=== PATIENT | male | born 1960 | race Caucasian/White ===

== ENCOUNTER 2016-08-27 12:07 | Emergency (ER) | payer OTHER ==
[~2016-08-27] VITALS: Wt 100.7 kg
[~2016-08-27 12:07] MED LIST: "\\\"BP PILL\\\""; AMOXICILLIN500 MG PO; AORACILLIN B500 MG PO; ASPIR LOW81 MG PO; CATAPRES0.1 MG PO; CLARITIN10 MG PO; DAYPRO600 M1 PO; FLEXERIL10 MG PO; LABETALOL HCL100 MG PO; LIPITOR40 MG PO; LISINOPRIL20 MG PO; MEDROL DOSEPAK4 MG PO; METOPROLOL50 MG; MINOXIDIL2.5 MG PO; MOTRIN800 MG PO; NAPROSYN500 MG PO; NKHM; NO DAILY MEDS; NORCO 325 MG-51 TAB PO; NORVASC10 MG PO; PARAFON FORTE500 MG PO; PEN-VEE K500 MG PO; ROBAXIN750 MG PO; TENORETIC; TENORETIC 50 501 TAB PO; TRAMADOL HCL50 MG PO; ULTRAM50 MG PO; VICODIN 5/500 505 MG; VICODIN 5/500 505 MG PO; ZESTRIL20 MG PO; ZITHROMAX Z PA250 MG PO
[2016-08-27] MEDS ORDERED: NEURONTIN300 MG PO (12:17)
[2016-08-27] MEDS ORDERED: TRAMADOL HCL50 MG PO (12:18)
[2016-08-27 13:01] LABS: BASO # 0.1 10*3/uL (0.0-0.1); BASO % 0.6 % (0.0-1.0); EOS # 0.6 10*3/uL (0.0-0.4); EOS % 7.2 % (1.0-4.0); HEMATOCRIT 35.4 % (42.0-52.0); HEMOGLOBIN 11.5 g/dl (14.0-18.0); LYMPH # 1.9 10*3/uL (1.3-4.4); LYMPH % 22.7 % (27.0-41.0); MEAN CELL VOLUME 89.8 fl (80.0-94.0); MEAN CORPUSCULAR HGB 29.2 pg (27.0-31.0); MEAN CORPUSCULAR HGB CONC 32.5 g/dl (33.0-37.0); MEAN PLATELET VOLUME 8.9 fl (9.6-12.3); MONO # 0.7 10*3/uL (0.1-1.0); MONO % 7.9 % (3.0-9.0); NEUT # 5.2 10*3/uL (2.3-7.9); NEUT % 61.2 % (47.0-73.0); PLATELET COUNT AUTOMATED 249 10*3/uL (130-400); RED BLOOD COUNT 3.94 10*6/uL (4.50-5.90); RED CELL DISTRI WIDTH 13.9 % (0-14.5); WHITE BLOOD COUNT 8.6 10*3/uL (4.8-10.8)
[2016-08-27 13:10] LABS: PROTHROMBIN TIME 10.5 SECONDS (9.0-12.4)
[2016-08-27 13:17] LABS: ALBUMIN 3.5 gm/dl (3.1-4.5); ALKALINE PHOSPHATASE 85 U/L (45-117); BILIRUBIN, TOTAL 0.5 mg/dl (0.2-1.0); BUN 10 mg/dl (7-24); CARBON DIOXIDE 30 mmol/L (21-32); CHLORIDE 104 mmol/L (98-107); EST GLOM FILT AFRICAN AMERICAN > 60 ml/min; GLUCOSE 162 mg/dL (65-99); POTASSIUM 3.7 mmol/L (3.5-5.1); SGOT/AST 30 IU/L (3-35); SGPT/ALT 37 U/L (12-78); SODIUM 141 mmol/L (136-145); TOTAL PROTEIN 7.3 gm/dL (6.4-8.2)
[2016-08-27 13:20] LABS: CPK 108 U/L (39-308); MAGNESIUM 2.1 mg/dL (1.5-2.1); TROPONIN I < 0.015 ng/ml (<0.045)
[2016-08-27] MEDS ORDERED: CEPHALEXIN500 M1 PO (14:07)
== END 2016-08-27 16:11 | disposition left against medical advice (07) ==
LOC: ED 12:07
PROVIDERS: Registered Nurse
DX: L03.119 Cellulitis of unspecified part of limb (principal); E66.9 Obesity, unspecified; R06.02 Shortness of breath; F17.200 Nicotine dependence, unspecified, uncomplicated; Z95.5 Presence of coronary angioplasty implant and graft; Z79.82 Long term (current) use of aspirin; Z79.899 Other long term (current) drug therapy

== ENCOUNTER → 2016-09-12 | Outpatient (CLI) | payer OTHER ==
[~2016-09-12] MED LIST changes: +CEPHALEXIN500 M1 PO; +NEURONTIN300 MG PO
== END | disposition home or self-care (01) ==
LOC: US 08-31 09:30
DX: B19.20 Unspecified viral hepatitis C without hepatic coma (principal); K76.0 Fatty (change of) liver, not elsewhere classified

== ENCOUNTER → 2016-09-23 | Outpatient (CLI) | payer OTHER ==
[2016-09-23 11:25] LABS: ALBUMIN 3.6 gm/dl (3.1-4.5); BILIRUBIN, DIRECT 0.1 mg/dL (0.0-0.2); BILIRUBIN, TOTAL 0.6 mg/dl (0.2-1.0); TOTAL PROTEIN 7.9 gm/dL (6.4-8.2)
[2016-09-24 22:05] LABS: HEPATITIS C QUANTITATION 15200 IU/mL (.)
== END | disposition home or self-care (01) ==
LOC: LAB 10:26
PROVIDERS: Internal Medicine Gastroenterology
DX: B19.20 Unspecified viral hepatitis C without hepatic coma (principal)

== ENCOUNTER 2016-09-29 18:48 | Emergency (ER) | payer OTHER ==
[~2016-09-29] VITALS: Ht 172.7 cm; Wt 123.4 kg
--- NOTE | ~2016-09-29 | EKG ---
[place], [place] ELECTROCARDIOGRAM REPORT NAME: CRISTIANE GOODWIN UNIT #: [id number] ROOM: DOCTOR: CONTRERAS ROBERTSON MD BIRTHDATE: [birth year] DOS: 09/29/2016 TIME: 1930 hours. Normal sinus rhythm at 65 beats per minute. The tracing is within normal limits. No previous tracing is available for comparison. CONTRERAS ROBERTSON MD CM:EKGRPT:ELECTROCARDIOGRAM REPORT 1805 [id number] CONTRERAS ROBERTSON MD
[2016-09-29 19:17] LABS: BASO # 0.1 10*3/uL (0.0-0.1); BASO % 0.6 % (0.0-1.0); EOS # 0.7 10*3/uL (0.0-0.4); HEMATOCRIT 38.4 % (42.0-52.0); HEMOGLOBIN 12.5 g/dl (14.0-18.0); IG # 0.1 10*3/uL (0.0-0.1); LYMPH # 2.1 10*3/uL (1.3-4.4); LYMPH % 14.4 % (27.0-41.0); MEAN CELL VOLUME 88.7 fl (80.0-94.0); MEAN CORPUSCULAR HGB 28.9 pg (27.0-31.0); MEAN CORPUSCULAR HGB CONC 32.6 g/dl (33.0-37.0); MEAN PLATELET VOLUME 8.8 fl (9.6-12.3); MONO # 1.1 10*3/uL (0.1-1.0); MONO % 7.2 % (3.0-9.0); NEUT # 10.5 10*3/uL (2.3-7.9); NEUT % 72.2 % (47.0-73.0); PLATELET COUNT AUTOMATED 305 10*3/uL (130-400); RED BLOOD COUNT 4.33 10*6/uL (4.50-5.90); RED CELL DISTRI WIDTH 13.4 % (0-14.5); WHITE BLOOD COUNT 14.5 10*3/uL (4.8-10.8)
[2016-09-29 19:35] LABS: ALBUMIN 3.7 gm/dl (3.1-4.5); ALKALINE PHOSPHATASE 94 U/L (45-117); BILIRUBIN, TOTAL 0.9 mg/dl (0.2-1.0); BUN 11 mg/dl (7-24); CARBON DIOXIDE 29 mmol/L (21-32); CHLORIDE 102 mmol/L (98-107); EST GLOM FILT AFRICAN AMERICAN > 60 ml/min; GLUCOSE 96 mg/dL (65-99); MAGNESIUM 2.1 mg/dL (1.5-2.1); POTASSIUM 4.3 mmol/L (3.5-5.1); SGOT/AST 30 IU/L (3-35); SGPT/ALT 33 U/L (12-78); SODIUM 136 mmol/L (136-145); TOTAL PROTEIN 8.3 gm/dL (6.4-8.2)
[2016-09-29 19:36] LABS: TROPONIN I < 0.015 ng/ml (<0.045)
[2016-09-29 19:37] LABS: PROTHROMBIN TIME 11.1 SECONDS (9.0-12.4)
[2016-09-29 19:41] LABS: BILIRUBIN NEGATIVE (NEGATIVE); BLOOD NEGATIVE (NEGATIVE); CLARITY SL CLOUDY (CLEAR); COLOR YELLOW (YELLOW); GLUCOSE NEGATIVE (NEGATIVE); KETONE NEGATIVE (NEGATIVE); LEUKO ESTERASE NEGATIVE (NEGATIVE); NITRITE NEGATIVE (NEGATIVE); PH 5.5 (5.0-9.0); PROTEIN NEGATIVE (NEGATIVE); SPECIFIC GRAVITY 1.025 (1.005-1.030); UROBILINOGEN 0.2 E.U./dl (0.2-1.0)
[2016-09-29 19:49] LABS: BACTERIA TRACE; URINE REFLEX COMMENT NO (NO)
[2016-09-29] MEDS ORDERED: LASIX40 MG PO (21:28)
[2016-09-29] MEDS ORDERED: PROAIR HFA8.5 GM INH (21:29)
== END 2016-09-29 21:47 | disposition home or self-care (01) ==
LOC: ED 18:48
PROVIDERS: Emergency Medicine Emergency Medical Services
DX: K85.90 Acute pancreatitis without necrosis or infection, unspecified (principal); R06.00 Dyspnea, unspecified; R06.02 Shortness of breath; R05 Cough; R09.81 Nasal congestion; F17.200 Nicotine dependence, unspecified, uncomplicated; Z79.899 Other long term (current) drug therapy; Z79.82 Long term (current) use of aspirin

== ENCOUNTER 2017-07-23 23:19 | Emergency (ER) | payer OTHER ==
[~2017-07-23] VITALS: Ht 182.8 cm; Wt 181.4 kg
[~2017-07-23 23:19] MED LIST changes: +LASIX40 MG PO; +PROAIR HFA8.5 GM INH
== END 2017-07-23 23:26 | disposition expired ==
LOC: ED 23:19
DX: I46.9 Cardiac arrest, cause unspecified (principal); I25.10 Atherosclerotic heart disease of native coronary artery without angina pectoris; I25.2 Old myocardial infarction; J44.9 Chronic obstructive pulmonary disease, unspecified; I10 Essential (primary) hypertension; E66.9 Obesity, unspecified; Z95.5 Presence of coronary angioplasty implant and graft; Z98.890 Other specified postprocedural states; Z79.899 Other long term (current) drug therapy; Z79.82 Long term (current) use of aspirin; Z86.73 Personal history of transient ischemic attack (TIA), and cerebral infarction without residual deficits